=== PATIENT | female | born 1975 | race Caucasian/White ===

== ENCOUNTER 2016-11-04 15:30 | Emergency (ER) ==
--- NOTE | 2016-11-04 16:25 | PROVIDER DOCUMENTATION ---
HPI-Abdominal Pain/GI Problem - General Source: patient - History of Present Illness-ABD Nature of Presenting Problems: pt is a 41 yof who came to the ED with a cc of abdominal pain and unable to have a bowel movement. Pt reports her abdomen hurts and hasn't been able to have a complete bowel movement for a week. Pt reports today it was worse. <Keke Mixon - Last Filed: 11/04/16 17:41> <Sonia Mix - Last Filed: 11/04/16 18:28> - General Chief Complaint: Abdominal Pain Stated Complaint: ABD PAIN/VOMITING Time Seen by Provider: 11/04/16 16:14 Allergies/Adverse Reactions: Patient Allergies Allergy/AdvReac Type Severity Reaction Status Date / Time No Known Allergies Allergy Verified 11/04/16 16:46 Home Medications: Home Medication List Medication Instructions Recorded Confirmed Last Taken Type No Home Medications 09/14/12 11/04/16 Unknown History Review of Systems - Adult - REVIEW OF SYSTEMS - ADULT Constitutional: denies: fever, night sweats Eyes: reports: no symptoms reported Ears, Nose, Mouth & Throat: denies: sinus problem, mouth/dental pain Cardiovascular: reports: no symptoms reported Respiratory: reports: no symptoms reported Gastrointestinal: reports: abdominal pain, constipation. denies: diarrhea, nausea, vomiting Genitourinary: reports: no symptoms reported Musculoskeletal: denies: frequent leg cramps, joint swelling Integumentary: reports: no symptoms reported Neurological: reports: no symptoms reported Psychiatric: reports: no symptoms reported Endocrine: reports: no symptoms reported Hematologic/Lymphatic: reports: no symptoms reported Allergic/Immunologic: reports: no symptoms reported All Other Systems: Reviewed and Negative <Keke Mixon - Last Filed: 11/04/16 17:41> Past History - Adult - PAST MEDICAL HISTORY-ADULT Review of Records: reports: Old Records Reviewed, Nursing Assessment Review Major Childhood Illnesses: reports: denies history Cardiovascular: reports: denies history Respiratory: reports: denies history Gastrointestinal: reports: denies history Obstetrical/Gynecological: reports: denies history Genitourinary: reports: denies history Musculoskeletal: reports: denies history Neurological: reports: denies history Psychiatric: reports: bipolar Endocrine/Immune: reports: denies history Other Conditions: reports: denies history - PRIOR SURGERIES/PROCEDURES Surgical/Procedure History: reports: hysterectomy - IMMUNIZATION STATUS Childhood Immunizations: See Nurse Assessment Flu Vaccine: See Nurse Assessment - FAMILY HISTORY Family History: reviewed, not pertinent - SOCIAL HISTORY Smoking: cigarettes Substance Use: alcohol <ApurvaDwight jonesnzie - Last Filed: 11/04/16 17:41> Physical Exam-General - PHYSICAL EXAM-ADULT Initial Vital Signs Reviewed: Yes - CONSTITUTIONAL General Appearance: appears well, alert, no apparent distress - EYES Eyes: PERRL/EOMI, pink conjunctivae, fundi clear, no AV nicking - HEAD, EARS, NOSE, MOUTH & THROAT HENMT: normocephalic/atraumatic, moist mucous membranes, normal ENT inspection, TMs normal, pharynx normal - NECK Neck: non-tender - RESPIRATORY Respiratory: chest non-tender, lungs clear, normal breath sounds, no pleuratic chest pain, no respiratory distress, no accessory muscle use - CARDIOVASCULAR Cardiovascular: normal peripheral pulses, regular rate, rhythm, no edema, no gallop, no JVD, no murmur - GASTROINTESTINAL (ABDOMEN) Abdominal Exam: abnormal bowel sounds - LYMPHATIC Lymphatic: no adenopathy - MUSCULOSKELETAL Back Exam: normal inspection Extremity: normal range of motion - SKIN Integumentary: normal color, normal turgor - NEUROLOGIC Neurologic: grossly normal - PSYCHIATRIC Psych/Mental Status: normal mood/affect, normal thought content, normal thought process, oriented x 3 <Dwight Mixonnzie - Last Filed: 11/04/16 17:41> Progress - PLAN OF CARE/RESULTS Progress/Plan/Lab Results: Vital Signs - 24 hr 11/04/16 15:35 Temperature 98.1 F Pulse Rate 99 H Respiratory 20 Rate Blood Pressure 147/118 O2 Sat by Pulse 100 Oximetry Orders Category Date Time Status Saline Loc DIRECTED Care 11/04/16 16:17 Active NPO Diet 11/04/16 16:17 Active flat [FLAT/UPRIGHT ABD/1 VIEW CHEST] [RAD] Stat Exams 11/04/16 16:18 Ordered AMYLASE [CHEM] Stat Lab 11/04/16 16:17 Uncollected CBC WITH ELECTRONIC DIFF [HEME] Stat Lab 11/04/16 16:17 Uncollected COMPREHENSIVE METABOLIC PANEL [CHEM] Stat Lab 11/04/16 16:17 Uncollected LIPASE [CHEM] Stat Lab 11/04/16 16:17 Uncollected URINALYSIS W/POSS RFLX CULT [URINALYSIS] Stat Lab 11/04/16 16:17 Uncollected <Keke Mixon - Last Filed: 11/04/16 17:41> - PLAN OF CARE/RESULTS Progress/Plan/Lab Results: Laboratory Tests 11/04/16 11/04/16 11/04/16 16:53 16:53 17:24 WBC 10.62 RBC 4.40 Hgb 13.5 Hct 41.2 MCV 93.6 MCH 30.7 MCHC 32.8 L RDW Std Deviation 13.8 Plt Count 488 H MPV 9.9 Immature Gran % (Auto) 0.0 Neut % (Auto) 74.8 Lymph % (Auto) 16.8 L [place] % (Auto) 5.8 Eos % (Auto) 1.7 Baso % (Auto) 0.9 H Immature Gran # (Auto) 0.00 Neut # (Auto) 7.94 H Lymph # (Auto) 1.78 [place] # (Auto) 0.62 H Eos # (Auto) 0.18 Baso # (Auto) 0.10 Sodium 132 L Potassium 3.9 Chloride 92 L Carbon Dioxide 21 L Anion Gap 19 BUN 6 L Creatinine 0.5 BUN/Creatinine Ratio 12 Glucose 78 Calculated Osmolality 261 Calcium 9.2 Total Bilirubin 0.22 AST 10 ALT 5 L Alkaline Phosphatase 86 Total Protein 7.1 Albumin 3.9 Globulin 3.2 Albumin/Globulin Ratio 1.2 Amylase 31 Lipase 25 Urine Source CLEAN CATCH Urine Color YELLOW Urine Turbidity HAZY Urine pH 5.5 Ur Specific [place] 1.008 Urine Protein NEGATIVE Ur Glucose (Stick) NEGATIVE Ur Ketones (Stick) 40 A Urine Blood NEGATIVE Urine Nitrite NEGATIVE Urine Bilirubin NEGATIVE Urobilinogen Dipstick NORMAL Urine Leukocytes NEGATIVE Urine WBC (Auto) <10 Urine RBC (Auto) <10 U Epithel Cells (Auto) <10 Urine Bacteria (Auto) 1+ Orders Category Date Time Status Saline Loc DIRECTED Care 11/04/16 16:17 Active NPO Diet 11/04/16 16:17 Active flat [FLAT/UPRIGHT ABD/1 VIEW CHEST] [RAD] Stat Exams 11/04/16 16:18 Completed AMYLASE [CHEM] Stat Lab 11/04/16 16:53 Completed CBC WITH ELECTRONIC DIFF [HEME] Stat Lab 11/04/16 16:53 Completed COMPREHENSIVE METABOLIC PANEL [CHEM] Stat Lab 11/04/16 16:53 Completed LIPASE [CHEM] Stat Lab 11/04/16 16:53 Completed URINALYSIS W/POSS RFLX CULT [URINALYSIS] Stat Lab 11/04/16 17:24 Completed Misc. Pharmacy Communication Med 11/04/16 17:30 Discontinued 1 each .SEE ORDER DIRECTED Non-Formulary Med Med 11/04/16 17:30 Discontinued 1 each WA ONCE ONE Ondansetron Odt [Zofran Odt] Med 11/04/16 17:18 Discontinued 4 mg PO NOW ONE Simethicone Chew [Mylicon] Med 11/04/16 17:12 Discontinued 160 mg PO NOW ONE Vital Signs - 24 hr 11/04/16 15:35 Temperature 98.1 F Pulse Rate 99 H Respiratory 20 Rate Blood Pressure 147/118 O2 Sat by Pulse 100 Oximetry - XRAY 1 XRAY Study: Abdomen XRAY Interpretation: constipation (hcb) <Sonia Mix - Last Filed: 11/04/16 18:28> Departure <Keke Mixon - Last Filed: 11/04/16 17:41> - Departure Time of Disposition Order: 18:25 Certified Medical Emergency: Emergent <Sonia Mix - Last Filed: 11/04/16 18:28> - Departure DIAGNOSIS: Constipation Qualifiers: Constipation type: unspecified constipation type Qualified Code(s): K59.00 - Constipation, unspecified Disposition: HOME 01 Condition: Good Additional Instructions: follow up with PCP and GI for eval of abd pain ED Follow Up Instructions: You have been treated by a care provider in the Emergency Department. These instructions are being provided to you so you can have an understanding of how to care for yourself upon discharge. Upon discharge from the Emergency Department, you are responsible for making arrangements for follow-up care by a physician of your choice. Take all prescribed medications as directed. Return to the Emergency Department immediately for any new or worsening symptoms. You may call the Physician Referral phone number at [phone] to obtain a list of Physicians who are taking new patients. Referrals: None,PCP [Primary Care Provider] - Subhash Mcgovern MD [STAFF PHYSICIAN] - Attestation - Scribe Verification/Attestation Scribe:: Keke Mixon Acting as Scribe for:: Sonia Mix Scribe documention review:: This chart was documented by a scribe and accurately reflects the service the provider performed and the decisions made by the provider. - Scribe Verification/Attestation #2 Shift Change Time: 17:41 Scribe Name: Angel Pelaez Acting as Scribe for:: Sonia Mix <Keke Mixon - Last Filed: 11/04/16 17:41> - Physician/ PJ Attestation Patient care was provided by Advanced Practice Provider:: Yes Advanced Practice Provider:: Sonia Mix Advanced Practice Provider documentation review:: The Mid-level provider documentation, treatment plan and medical decision making was reviewed by the physician who agrees with all treatment and medical decision making by the MLP. <Sonia Mix - Last Filed: 11/04/16 18:28> Physician Attestation
--- NOTE | 2016-11-04 16:59 | Diag Imaging Result Document ---
PROCEDURE NAME: FLAT/UPRIGHT ABD/1 VIEW CHEST - 11/04/2016 FLAT AND UPRIGHT ABDOMEN: FINDINGS: There is stool in the ascending colon. There is no evidence of gastric or small bowel dilatation. There is gas in the rectosigmoid colon. No evidence of organomegaly or mass is present. There are numerous phleboliths in the pelvis. IMPRESSION: Constipation. Otherwise, nonspecific abdomen. PA CHEST: FINDINGS: PA view of the chest reveals the heart size to be within normal limits. There is no evidence of mediastinal widening or infiltrate in either lung. IMPRESSION: Normal PA chest.
[2016-11-04 17:04] LABS: MANUAL DIFF NEEDED? NO
[2016-11-04 17:07] LABS: BASO% 0.9 % (0.0-0.8); EOS# 0.18 X1000 (0.0-0.7); EOS% 1.7 % (0.0-10.0); HEMATOCRIT 41.2 % (37.0-47.0); HEMOGLOBIN 13.5 g/dL (12.0-16.0); LYMPH# 1.78 X1000 (1.2-3.4); LYMPH% 16.8 % (20.5-51.1); MCH 30.7 PG (27-31); MCHC 32.8 g/dL (33-37); MCV 93.6 FL (81-99); MONO# 0.62 X1000 (0.11-0.59); MONO% 5.8 % (1.7-9.3); MPV 9.9 FL (7.4-10.4); NEUT% 74.8 % (42.2-75.2); PLT 488 X1000 (130-400)
[2016-11-04] MEDS ORDERED: MYLICON PO ONE (17:12)
[2016-11-04] MEDS ORDERED: ZOFRAN ODT PO ONE (17:18)
[2016-11-04] MEDS ORDERED: MISC. PHARMACY COMMUNICATION SCH (17:30)
[2016-11-04] MEDS ORDERED: NON-FORMULARY MED PR ONE (17:30)
[2016-11-04 17:36] LABS: URINE CULTURE NEEDED? NO; URINE MICRO REVIEW NEEDED? NO; URINE SOURCE CLEAN CATCH
[2016-11-04 17:40] LABS: BILIRUBIN URINE NEGATIVE (NEGATIVE); BLOOD URINE NEGATIVE (NEGATIVE); COLOR YELLOW; GLUCOSE URINE NEGATIVE (NEGATIVE); LEUKOCYTES URINE NEGATIVE (NEGATIVE); NITRITE URINE NEGATIVE (NEGATIVE); PH URINE 5.5; PROTEIN URINE NEGATIVE (NEGATIVE); SP GRAVITY URINE 1.008; TURBIDITY URINE HAZY (CLEAR); UR EPITHELIAL CELLS <10 /HPF (<10); URINE BACTERIA 1+ /HPF; URINE RBC <10 /HPF (<10); URINE WBC <10 /HPF (<10); UROBILINOGEN URINE NORMAL (NORMAL)
[2016-11-04 17:48] LABS: AGAP 19; BUN 6 mg/dL (8-22); CHLORIDE 92 mmol/L (98-107); COSMO 261; POTASSIUM 3.9 mmol/L (3.5-5.1); SODIUM 132 mmol/L (136-145); TCO2 21 mmol/L (25-35)
[2016-11-04 17:49] LABS: ALBUMIN 3.9 g/dL (3.5-5.0); ALKALINE PHOSPHATASE 86 U/L (32-104); CALCIUM 9.2 mg/dL (8.8-10.2); TOTAL BILIRUBIN 0.22 mg/dL (0.20-1.00); TOTAL PROTEIN 7.1 g/dL (6.3-8.3)
[2016-11-04 17:50] LABS: AMYLASE 31 U/L (20-200); GOT 10 U/L (10-30); GPT 5 U/L (10-36); LIPASE 25 U/L (13-60)
[2016-11-04 19:14] VITALS: BP 140/93
== END 2016-11-04 19:14 | disposition home or self-care (01) ==
LOC: ED 15:30
DX: K59.00 Constipation, unspecified (principal); R10.9 Unspecified abdominal pain; F17.210 Nicotine dependence, cigarettes, uncomplicated
CPT/HCPCS: 74022; 80053; 81001; 82150; 83690; 85025